=== PATIENT | male | born 1945 | race Caucasian/White ===

== ENCOUNTER 2018-03-29 10:02 | Emergency (ER) | payer OTHER, MEDICAID ==
--- NOTE | 2018-03-29 10:38 | EDPHY ---
H & P Time Seen by Provider: 03/29/18 10:34 HPI/ROS: CHIEF COMPLAINT: Hematuria HISTORY OF PRESENT ILLNESS: Patient is a 73-year-old male who denies any past medical history the presents emergency department hematuria. The patient states his symptoms started a few months ago. He has noticed intermittent blood. Nothing changed over the past week except for he decided to have it checked out. He has no dysuria or frequency. No flank pain. No abdominal pain. No nausea vomiting. No weight loss. Patient has no other significant bruising or bleeding symptoms. REVIEW OF SYSTEMS: 10 systems were reveiwed and are negative with the exception of the elements mentioned in the history of present illness. Past Medical/Surgical History: Denies Social history: Patient reports drinking alcohol Smoking Status: Former smoker Physical Exam: Vitals noted GENERAL: Well-appearing, in no acute distress, alert. HEENT: Eyes normal to inspection, normal pharynx, no signs of dehydration. Normal conjunctiva NECK: Normal, supple. RESPIRATORY: Clear to auscultation bilaterally, no rales, rhonchi or wheezing. CVS: Regular rate and rhythm, no rubs, murmurs, or gallops. ABDOMEN: Soft, nontender, nondistended, no organomegaly. Benign BACK: Normal to inspection, no CVA tenderness. SKIN: Normal color, no rash, warm, dry. No pallor. EXTREMITIES: No pedal edema, no bruising, no joint swelling. NEURO/PSYCH: Alert and oriented, normal mood and affect. Constitutional: Initial Vital Signs Temperature (C) 37.2 C 03/29/18 10:08 Heart Rate 110 H 03/29/18 10:08 Respiratory Rate 20 03/29/18 10:08 Blood Pressure 155/88 H 03/29/18 10:08 O2 Sat (%) 94 03/29/18 10:08 O2 Delivery Mode Room Air Allergies/Adverse Reactions: No Known Allergies Allergy (Verified 03/29/18 10:14) Home Medications: Medication Instructions Recorded Cephalexin [Keflex (*)] 500 mg PO QID 7 Days cap 03/29/18 Medical Decision Making ED Course/Re-evaluation: In the emergency department I discussed possible etiologies with the patient. I answered all his questions. A chemistry panel with hemoglobin in urine dip was ordered from point of care. I discussed plan with the patient. I answered all his questions. Hematocrit was 45. Creatinine was 1.0. Patient's urine shows positive blood and bilirubin. Patient also had positive leukocytes and nitrite. I discussed the results with the patient. Patient was given an antibiotic. I will take the entire course. He was given warnings prior to leaving. He will follow up with Urology. Differential Diagnosis: My differential includes but is not limited to hematuria, dysuria, urinary tract infection, pyelonephritis, mass, malignancy, cystitis, anemia - Data Points Laboratory Results: 03/29/18 10:50 POC Hgb 15.3 gm/dL gm/dL (13.7-17.5) POC Hct 45 % % (40-51) POC Sodium 137 mEq/L mEq/L (135-145) POC Potassium 4.1 mEq/L mEq/L (3.3-5.0) POC Chloride 101 mEq/L mEq/L (97-110) POC BUN 11 mg/dL mg/dL (7-23) POC Creatinine 1.0 mg/dL mg/dL (0.7-1.3) POC Glucose 114 mg/dL H mg/dL (70-100) Point of Care Test Results: Chemistry 03/29/18 10:50 POC Sodium 137 mEq/L mEq/L (135-145) POC Potassium 4.1 mEq/L mEq/L (3.3-5.0) POC Chloride 101 mEq/L mEq/L (97-110) POC BUN 11 mg/dL mg/dL (7-23) POC Creatinine 1.0 mg/dL mg/dL (0.7-1.3) POC Glucose 114 mg/dL H mg/dL (70-100) ISTAT H&H 03/29/18 10:50 POC Hgb 15.3 gm/dL gm/dL (13.7-17.5) POC Hct 45 % % (40-51) Urine Dip Collection Date 03/29/18 Collection Time 11:10 Specific [place] (1.002-1.030) 1.020 PH (5.0-7.5) 7.0 Leukocytes (Negative) 1+ Nitrites (Negative) Positive Protein (Negative) 3+ Glucose (Negative) Trace Ketones (Negative) Trace Urobilnogen (0.2-1.0 EU) 1.0 Bilirubin (Negative) Test Not Performed Blood (Negative) 3+ Departure - Departure Disposition: Home, Routine, Self-Care Clinical Impression: Hematuria Qualifiers: Hematuria type: unspecified type Qualified Code(s): R31.9 - Hematuria, unspecified Urinary tract infection Qualifiers: Urinary tract infection type: acute cystitis Hematuria presence: with hematuria Qualified Code(s): N30.01 - Acute cystitis with hematuria Condition: Good Instructions: Hematuria (ED), Urinary Tract Infection in Men (ED) Additional Instructions: You need close follow-up with Urology. Call today or tomorrow to make the next available appointment. Return to the emergency department sooner with increased blood in urine, pain, fever or any other concerns. Referrals: Marcos Rubio MD [Medical Doctor] - As per Instructions Prescriptions: Cephalexin [Keflex (*)] 500 mg PO QID 7 Days cap
[2018-03-29] MEDS ORDERED: CEPHALEXIN 500 MG CAP PO ONE (11:37)
[2018-03-29 11:58] VITALS: BP 151/91
== END 2018-03-29 11:57 | disposition home or self-care (01) ==
LOC: CED 10:02
DX: N39.0 Urinary tract infection, site not specified (principal)
CPT/HCPCS: 82435-PO; 82565-PO; 82947-PO; 84132-PO; 84295-PO; 84520-PO; 85014-PO

== ENCOUNTER 2018-06-16 15:14 | Inpatient (IN) | payer OTHER, MEDICAID ==
--- NOTE | 2018-06-16 15:44 | EDPHY ---
H & P Stated Complaint: Right sided Arm weakness for past 3 days, feeling "off" Time Seen by Provider: 06/16/18 15:24 HPI/ROS: CHIEF COMPLAINT: Right facial weakness, right arm weakness, history of bladder cancer HISTORY OF PRESENT ILLNESS: The patient has a history of bladder cancer presents to the ED with 2 days of right facial weakness and right arm weakness. The patient denies any history of fall or trauma. He denies headache. He denies any use of anticoagulant. The patient denies any acute neurologic complaints. REVIEW OF SYSTEMS: A comprehensive 10 point review of systems is otherwise negative aside from elements mentioned in the history of present illness. Source: Patient Exam Limitations: No limitations - Personal History Current Tetanus/Diphtheria Vaccine: Unsure Current Tetanus Diphtheria and Acellular Pertussis (TDAP): Unsure - Medical/Surgical History Hx Asthma: No Hx Chronic Respiratory Disease: No Hx Diabetes: No Hx Cardiac Disease: No Hx Renal Disease: No Hx Cirrhosis: No Hx Alcoholism: No Hx HIV/AIDS: No Hx Splenectomy or Spleen Trauma: No Other PMH: Denies - Social History Smoking Status: Former smoker - Physical Exam Exam: General Appearance: Elderly male, no acute distress Eyes: Pupils equal and round no pallor or injection ENT, Mouth: Mucous membranes moist Respiratory: There are no retractions, lungs are clear to auscultation Cardiovascular: Regular rate and rhythm Gastrointestinal: Abdomen is soft and nontender, no masses, bowel sounds normal Neurological: Markedly weakness noted in the right arm with drift and minimal movement against gravity, right facial droop, 5/5 strength noted in the left side of the body and 5/5 strength noted in the right leg Skin: Warm and dry, no rashes Musculoskeletal: Neck is supple nontender Extremities: symmetrical, full range of motion Psychiatric: Patient is oriented X 3, there is no agitation Constitutional: Initial Vital Signs Temperature (C) 36.8 C 06/16/18 15:24 Heart Rate 79 06/16/18 15:24 Respiratory Rate 16 06/16/18 15:24 Blood Pressure 154/99 H 06/16/18 15:24 O2 Sat (%) 94 06/16/18 15:24 O2 Delivery Mode Room Air Allergies/Adverse Reactions: No Known Allergies Allergy (Verified 03/29/18 10:14) Home Medications: Medication Instructions Recorded NK [No Known Home Meds] 06/16/18 Medical Decision Making - Diagnostics EKG Interpretation: EKG: Complete interpretation has been separately recorded in the [facility] archive. Summary impression: Sinus rhythm, rate 75 Imaging Results: Imaging Impressions Head CT 06/16/18 15:30 Impression: Underlying atrophy and white matter microvascular ischemic gliosis ; subacute ischemic infarction posterior left parietal lobe, moderate size, without hemorrhage. Results called to Dr. Manpreet Medrano at 4:00 PM at the time of the interpretation. Head CTA 06/16/18 16:16 Impression: 1. Diminished cortical perfusion to the posterior left parietal lobe at the site of subacute ischemic infarction. 2. Calcified plaque within the distal internal carotid arteries bilaterally, without flow-limiting disease or central thrombus. Results called to Dr. Manpreet Medrano at 5:30 PM. Neck CTA 06/16/18 16:16 Impression: 1. 2-cm soft plaque within the anterior aspect of the mid ascending thoracic aorta. 2. High-grade stenosis of the left common carotid artery at the origin, associated with a 2.0 x 0.7 cm free floating thrombus or noncalcified plaque downstream from the stenosis. 3. Localized dissection with calcification within the proximal left subclavian artery just past the origin, with secondary moderate stenosis. 4. High-grade stenosis of the proximal right vertebral artery at the origin from the subclavian artery. 5. Extensive calcified plaque within the carotid bifurcations and proximal ICAs bilaterally, without flow-limiting disease. Results called to Dr. Jose Medrano at 5:30 p.m. Note: All stenoses are calculated using NASCET Criteria. ED Course/Re-evaluation: The patient presents to the ED with right facial weakness and right arm weakness which has been present for the past 3 days. He has mild weakness noted in his right leg. The patient was taken for CT scan of the brain which demonstrates a subacute stroke. The patient return from the CT scanner. CT angiography has been ordered. The patient was given an aspirin. The patient is not a candidate for thrombolytics therapy as he has had symptoms for 2-3 days. I reviewed the results of the CTA with Dr. Flor from [facility] who states that there is no indication for an intervention. He recommends admission to our hospital for further work-up. Differential Diagnosis: Differential diagnosis considered includes stroke, intracranial hemorrhage, LINE DRIVER metastasis - Data Points Laboratory Results: Laboratory Results 06/16/18 15:35 06/16/18 15:35 06/16/18 06/16/18 06/16/18 15:35 15:35 15:35 WBC 5.98 10^3/uL 10^3/uL (3.80-9.50) RBC 4.21 10^6/uL L 10^6/uL (4.40-6.38) Hgb 12.7 g/dL L g/dL (13.7-17.5) Hct 37.8 % L % (40.0-51.0) MCV 89.8 fL fL (81.5-99.8) MCH 30.2 pg pg (27.9-34.1) MCHC 33.6 g/dL g/dL (32.4-36.7) RDW 14.1 % % (11.5-15.2) Plt Count 498 10^3/uL H 10^3/uL (150-400) MPV 9.2 fL fL (8.7-11.7) Neut % (Auto) 62.0 % % (39.3-74.2) Lymph % (Auto) 33.4 % % (15.0-45.0) Irwin % (Auto) 3.7 % L % (4.5-13.0) Eos % (Auto) 0.2 % L % (0.6-7.6) Baso % (Auto) 0.2 % L % (0.3-1.7) Nucleat RBC Rel Count 0.0 % % (0.0-0.2) Absolute Neuts (auto) 3.71 10^3/uL 10^3/uL (1.70-6.50) Absolute Lymphs (auto) 2.00 10^3/uL 10^3/uL (1.00-3.00) Absolute Monos (auto) 0.22 10^3/uL L 10^3/uL (0.30-0.80) Absolute Eos (auto) 0.01 10^3/uL L 10^3/uL (0.03-0.40) Absolute Basos (auto) 0.01 10^3/uL L 10^3/uL (0.02-0.10) Absolute Nucleated RBC 0.00 10^3/uL 10^3/uL (0-0.01) Immature Gran % 0.5 % % (0.0-1.1) Immature Gran # 0.03 10^3/uL 10^3/uL (0.00-0.10) PT 13.5 SEC SEC (12.0-15.0) INR 1.01 (0.83-1.16) Sodium 137 mEq/L mEq/L (135-145) Potassium 4.0 mEq/L mEq/L (3.5-5.2) Chloride 103 mEq/L mEq/L (97-110) Carbon Dioxide 23 mEq/l mEq/l (22-31) Anion Gap 11 mEq/L mEq/L (6-14) BUN 32 mg/dL H mg/dL (7-23) Creatinine 1.0 mg/dL mg/dL (0.7-1.3) Estimated GFR > 60 Glucose 111 mg/dL H mg/dL (70-100) Calcium 9.3 mg/dL mg/dL (8.5-10.4) Medications Given: Discontinued Medications Aspirin (Aspirin) 324 mg PO EDNOW ONE Stop: 06/16/18 16:21 Last Admin: 06/16/18 16:41 Dose: 324 mg Departure - Departure Disposition: [facility] Inpatient Acute Clinical Impression: Ischemic stroke, Bladder cancer Condition: Fair NIH Stroke Scale Date of Exam: 06/16/18 Time of Exam: 16:28 Level of Consciousness: Alert LOC Questions: Answers Both LOC Commands: Performs Both Correctly Best Gaze: Normal Visual: No Visual Loss Facial Palsy: Complete Paralysis Motor Arm-Left: No Drift Motor Arm-Right: Some Effort to [place] Motor Leg-Left: No Drift Motor Leg-Right: Some Effort to [place] Limb Ataxis: Absent Sensory: Normal Best Language: No Aphasia Dysarthria: Mild/Mod Dysarthria Extinction and Inattention (Neglect): No Abnormality NIH Scale Score: 8
[2018-06-16 15:51] LABS: PLATELET COUNT 498 10^3/uL (150-400)
[2018-06-16 16:01] LABS: INR 1.01 (0.83-1.16); PROTIME(PATIENT) 13.5 SEC (12.0-15.0)
[2018-06-16] MEDS ORDERED: ASPIRIN 81 MG CHEWABLE TAB PO ONE (16:20)
[2018-06-16] MEDS ORDERED: IOPAMIDOL (ISOVUE 370) 100 ML BTL IV ONE (16:24)
--- NOTE | 2018-06-16 16:41 | CPEKG ---
Test Reason : OPEN Blood Pressure : / mmHG Vent. Rate : 075 BPM Atrial Rate : 074 BPM P-R Int : 135 ms QRS Dur : 095 ms QT Int : 379 ms P-R-T Axes : 067 043 044 degrees QTc Int : 424 ms Sinus rhythm Confirmed by Jose Brandt ([id number]) on 06/16/2018 4:40:40 PM Referred By: Confirmed By:Jose Brandt
[2018-06-16] MEDS ORDERED: ONDANSETRON DISINTEGRATING 4 MG TAB PO PRN (17:12)
[2018-06-16] MEDS ORDERED: ONDANSETRON 4 MG/2 ML VIAL IVP PRN (17:12)
--- NOTE | 2018-06-16 19:08 | PDGENHP ---
Addendum entered and electronically signed by Sherry Lal NP 06/16/18 19:35 : He is a heavy drinker with at least 6 beers a day. Does not appear to be withdrawing but continue to monitor. He reports last drink was a week ago. Addendum entered and electronically signed by Sherry Lal NP 06/16/18 19:32 : Ordered ECHO to evaluate heart function Original Note: <Sherry Lal - Last Filed: 06/16/18 19:28> History and Physical - Chief Complaint Right arm weakness - History of Present Illness 73 y/o male presents to the emergency room after experiencing right arm weakness for the last 2-3 days. This is my first encounter with the pt who was evaluated in the emergency room. He reports he wasn't doing anything in particular during the time that he noticed his right arm was weak. He noticed he wasn't able to lift it. He didn't notice anything with the right side of his face that was bothersome or cause for concern. Head CT reveals subacute ischemic infarction posterior left parietal lobe moderate size without hemorrhage. Head CTA confirms diminished cortical perfusion to the posterior left parietal lobe at the site of infarction and calcified plaque within distal internal carotid arteries bilaterally without flow-limiting disease or central thrombus. Neck CTA reveals soft plaque anterior aspect of mid ascending thoracic aorta and high grade stenosis of left common carotid artery associating with free floating thrombus or noncalcified down from the stenosis. Other findings can be found in the report. EKG SR. He is not a tPA candidate since onset was approximately 2-3 days prior. He is being admitted for further diagnostic work-up and management of subacute ischemic stroke. Past Medical/Surgical History 1. Bladder Cancer 2. TURB (April 2018) Social 1. Lives alone, independently 2. Denies tobacco or illicit drug use. Drinks at least 6 beers/day Vital Signs 161/97 86 HR 12 Respirations 95% RA 36.9c History Information - Allergies/Home Medication List Allergies/Adverse Reactions: No Known Allergies Allergy (Verified 03/29/18 10:14) Home Medications: NK [No Known Home Meds] 06/16/18 [Last Taken Unknown] I have personally reviewed and updated: family history, medical history, social history, surgical history Past Medical History: See HPI List - Surgical History Additional surgical history: See HPI list - Family History Positive for: non-pertinent - Social History Smoking Status: Former smoker Alcohol Use: Heavy Drug Use: None Review of Systems Review of Systems: ROS: 10pt was reviewed & negative except for what was stated in HPI & below Constitutional: Reports: weakness EENMT: Reports: no symptoms Cardiac: Reports: no symptoms Respiratory: Reports: no symptoms Gastrointestinal: Reports: no symptoms Genitourinary: Reports: no symptoms Muscolosketal: Reports: no symptoms Skin: Reports: no symptoms Neurological: Reports: numbness, weakness Hematologic/Lymphatic: Reports: no symptoms Immunologic/Allergy: Reports: no symptoms Physical Exam Physical Exam: Lab data and imaging reviewed Imaging: see HPI list RBC: 4.21 Hgb/Hct: 12.7/37.8 Plt: 498 Creatinine/BUN: 1.0/32 INR: 1.01 Temp Pulse Resp BP Pulse Ox 36.9 C 86 12 161/97 H 95 06/16/18 16:00 06/16/18 16:00 06/16/18 16:00 06/16/18 16:00 06/16/18 16:00 Constitutional: no apparent distress, appears nourished, not in pain Eyes: PERRL, anicteric sclera, EOMI Ears, Nose, Mouth, Throat: moist mucous membranes, hearing normal, ears appear normal, no oral mucosal ulcers Cardiovascular: regular rate and rhythym, no murmur, rub, or gallop, No edema Peripheral Pulses: 2+: dorsalis-pedis (R) (Radial 2+), dorsalis-pedis (L) ( Radial 2+) Respiratory: no respiratory distress, no rales or rhonchi, clear to auscultation Gastrointestinal: normoactive bowel sounds, soft, non-tender abdomen, no palpable masses Genitourinary: no bladder fullness, no bladder tenderness Skin: warm, normal color, no rashes or abrasions, no fluctuance, no induration, No mottled Musculoskeletal: other (See neurologic) Neurologic: weakness (Right arm can go against gravity but with difficulty; right leg can go against gravity but noted weakness), numbness (Unable to feel sensation to RUE, sensation intact RLE), pronator drift, facial droop (Right side), other (He was able to answer majority of questions correctly. Unable to tell me the month or who the president was. Unable to: shrug his right shoulder , bring his right ear to his right shoulder, asymmetrical smile.) Psychiatric: not anxious, flat affect, other (At times seemed frustrated with certain questions and his inability to answer them; had difficulty recalling information; no slurring of words) Lymph, Heme, Immunologic: no cervical LAD, no supraclavicular LAD Lab Data & Imaging Review 06/16/18 15:35 06/16/18 15:35 WBC 5.98 10^3/uL (3.80-9.50) 06/16/18 15:35 RBC 4.21 10^6/uL (4.40-6.38) L 06/16/18 15:35 Hgb 12.7 g/dL (13.7-17.5) L 06/16/18 15:35 Hct 37.8 % (40.0-51.0) L 06/16/18 15:35 MCV 89.8 fL (81.5-99.8) 06/16/18 15:35 MCH 30.2 pg (27.9-34.1) 06/16/18 15:35 MCHC 33.6 g/dL (32.4-36.7) 06/16/18 15:35 RDW 14.1 % (11.5-15.2) 06/16/18 15:35 Plt Count 498 10^3/uL (150-400) H 06/16/18 15:35 MPV 9.2 fL (8.7-11.7) 06/16/18 15:35 Neut % (Auto) 62.0 % (39.3-74.2) 06/16/18 15:35 Lymph % (Auto) 33.4 % (15.0-45.0) 06/16/18 15:35 Hood % (Auto) 3.7 % (4.5-13.0) L 06/16/18 15:35 Eos % (Auto) 0.2 % (0.6-7.6) L 06/16/18 15:35 Baso % (Auto) 0.2 % (0.3-1.7) L 06/16/18 15:35 Nucleat RBC Rel Count 0.0 % (0.0-0.2) 06/16/18 15:35 Absolute Neuts (auto) 3.71 10^3/uL (1.70-6.50) 06/16/18 15:35 Absolute Lymphs (auto) 2.00 10^3/uL (1.00-3.00) 06/16/18 15:35 Absolute Monos (auto) 0.22 10^3/uL (0.30-0.80) L 06/16/18 15:35 Absolute Eos (auto) 0.01 10^3/uL (0.03-0.40) L 06/16/18 15:35 Absolute Basos (auto) 0.01 10^3/uL (0.02-0.10) L 06/16/18 15:35 Absolute Nucleated RBC 0.00 10^3/uL (0-0.01) 06/16/18 15:35 Immature Gran % 0.5 % (0.0-1.1) 06/16/18 15:35 Immature Gran # 0.03 10^3/uL (0.00-0.10) 06/16/18 15:35 PT 13.5 SEC (12.0-15.0) 06/16/18 15:35 INR 1.01 (0.83-1.16) 06/16/18 15:35 Sodium 137 mEq/L (135-145) 06/16/18 15:35 Potassium 4.0 mEq/L (3.5-5.2) 06/16/18 15:35 Chloride 103 mEq/L (97-110) 06/16/18 15:35 Carbon Dioxide 23 mEq/l (22-31) 06/16/18 15:35 Anion Gap 11 mEq/L (6-14) 06/16/18 15:35 BUN 32 mg/dL (7-23) H 06/16/18 15:35 Creatinine 1.0 mg/dL (0.7-1.3) 06/16/18 15:35 Estimated GFR > 60 06/16/18 15:35 Glucose 111 mg/dL (70-100) H 06/16/18 15:35 Calcium 9.3 mg/dL (8.5-10.4) 06/16/18 15:35 Assessment & Plan Plan: 73 y/o male with subacute ischemic stroke and soft plaque in his carotid arteries. 1. Subacute ischemic stroke -Initiated stroke protocol including but not limited to tele monitoring, NIH Scale Qshift, and Neuro checks -Neurology to consult -PT/OT/LAB MANAGER to evaluate pt -ASA 325 mg QD -Plavix 75 mg QD -CBC/CMP tomorrow 2. Plaque -Initiated Atorvastatin 40 mg QD -Lipid panel tomorrow 3. Mild anemia: continue to monitor for now Diet: Regular if passed swallow test VTE ppx: SCD, ASA Code: DNR Dispo: Admit to inpatient <[email or web address] d - Last Filed: 06/16/18 20:47> History and Physical - History of Present Illness Review of Systems Review of Systems: Physical Exam Physical Exam: Temp Pulse Resp BP Pulse Ox 37 C 78 18 131/69 H 96 06/16/18 20:28 06/16/18 20:28 06/16/18 20:28 06/16/18 20:28 06/16/18 20:28 Lab Data & Imaging Review 06/16/18 15:35 06/16/18 15:35 WBC 5.98 10^3/uL (3.80-9.50) 06/16/18 15:35 RBC 4.21 10^6/uL (4.40-6.38) L 06/16/18 15:35 Hgb 12.7 g/dL (13.7-17.5) L 06/16/18 15:35 Hct 37.8 % (40.0-51.0) L 06/16/18 15:35 MCV 89.8 fL (81.5-99.8) 06/16/18 15:35 MCH 30.2 pg (27.9-34.1) 06/16/18 15:35 MCHC 33.6 g/dL (32.4-36.7) 06/16/18 15:35 RDW 14.1 % (11.5-15.2) 06/16/18 15:35 Plt Count 498 10^3/uL (150-400) H 06/16/18 15:35 MPV 9.2 fL (8.7-11.7) 06/16/18 15:35 Neut % (Auto) 62.0 % (39.3-74.2) 06/16/18 15:35 Lymph % (Auto) 33.4 % (15.0-45.0) 06/16/18 15:35 Hood % (Auto) 3.7 % (4.5-13.0) L 06/16/18 15:35 Eos % (Auto) 0.2 % (0.6-7.6) L 06/16/18 15:35 Baso % (Auto) 0.2 % (0.3-1.7) L 06/16/18 15:35 Nucleat RBC Rel Count 0.0 % (0.0-0.2) 06/16/18 15:35 Absolute Neuts (auto) 3.71 10^3/uL (1.70-6.50) 06/16/18 15:35 Absolute Lymphs (auto) 2.00 10^3/uL (1.00-3.00) 06/16/18 15:35 Absolute Monos (auto) 0.22 10^3/uL (0.30-0.80) L 06/16/18 15:35 Absolute Eos (auto) 0.01 10^3/uL (0.03-0.40) L 06/16/18 15:35 Absolute Basos (auto) 0.01 10^3/uL (0.02-0.10) L 06/16/18 15:35 Absolute Nucleated RBC 0.00 10^3/uL (0-0.01) 06/16/18 15:35 Immature Gran % 0.5 % (0.0-1.1) 06/16/18 15:35 Immature Gran # 0.03 10^3/uL (0.00-0.10) 06/16/18 15:35 PT 13.5 SEC (12.0-15.0) 06/16/18 15:35 INR 1.01 (0.83-1.16) 06/16/18 15:35 Sodium 137 mEq/L (135-145) 06/16/18 15:35 Potassium 4.0 mEq/L (3.5-5.2) 06/16/18 15:35 Chloride 103 mEq/L (97-110) 06/16/18 15:35 Carbon Dioxide 23 mEq/l (22-31) 06/16/18 15:35 Anion Gap 11 mEq/L (6-14) 06/16/18 15:35 BUN 32 mg/dL (7-23) H 06/16/18 15:35 Creatinine 1.0 mg/dL (0.7-1.3) 06/16/18 15:35 Estimated GFR > 60 06/16/18 15:35 Glucose 111 mg/dL (70-100) H 06/16/18 15:35 Calcium 9.3 mg/dL (8.5-10.4) 06/16/18 15:35 Assessment & Plan Assessment: Ischemic stroke (Acute) Bladder cancer (Acute) Plan: Patient seen and evaluated independently and care plan reviewed with ALEJANDRA Lal. Agree with her assessment and plan as outlined above. Please see separate documentation for further details.
--- NOTE | 2018-06-16 20:48 | HOSPPROG ---
Hospitalist Progress Note Assessment/Plan: 73 yo M with PMH of bladder cancer and oral leukoplakia presenting with several days of right arm and hand weakness/right facial droop found to be 2/2 subacute CVA # subacute CVA: with sxs beginning several days ago and out of window for TPA, posterior left parietal ischemic infarct noted on personal review of head CT. CTA of head/neck showing multiple abnormalities including high grade stenosis of the left common carotid with associated possible free floating thrombus, high grade stenosis of right proximal vertebral and left SCV artery dissection with associated moderate stenosis. Imaging findings were discussed with [facility] neurology who do not recommend urgent intervention or AC for these findings , but do recommend initiation of asa/plavix. Neurology to formally consult in the morning. # carotid disease: as above with question of possible free floating thrombus, will await neuro recommendations but patient may need surgical referral # bladder cancer: followed by [facility], not active issue # etoh use disorder: sounds as though patient is a fairly heavy drinker, does not have any s/s of withdrawal at this time, will start CIWA if this changes # IP status given new diagnosis of stroke and associated significant vascular findings # Patient new to my care. Old records reviewed and summarized as above. Care plan reviewed with ER doctor as above. Care plan reviewed with ALEJANDRA Lal, please see separate H&P for further details. Objective: Vital Signs Temp Pulse Resp BP Pulse Ox 37 C 78 18 131/69 H 96 06/16/18 20:28 06/16/18 20:28 06/16/18 20:28 06/16/18 20:28 06/16/18 20:28 PT 13.5 SEC (12.0-15.0) 06/16/18 15:35 INR 1.01 (0.83-1.16) 06/16/18 15:35 ICD10 Worksheet Patient Problems: Problems Problem Status Onset Bladder cancer Acute Ischemic stroke Acute
[2018-06-16] MEDS ORDERED: LISINOPRIL 10 MG TAB PO SCH (21:00)
[2018-06-16] MEDS: ATORVASTATIN CALCIUM 40 MG TAB PO SCH (21:25)
[2018-06-16] MEDS: CLOPIDOGREL BISULFATE 75 MG TAB PO SCH (21:25)
[2018-06-17] MEDS ORDERED: ASPIRIN EC 325 MG TAB PO SCH (09:00)
[2018-06-17] MEDS: ATORVASTATIN CALCIUM 40 MG TAB PO SCH (09:20)
[2018-06-17] MEDS: CLOPIDOGREL BISULFATE 75 MG TAB PO SCH (09:20)
--- NOTE | 2018-06-17 12:35 | ECHO ---
[email or web address] [address] [address] Main: [phone] Fax: Transthoracic Echocardiogram Name: KATHARINE CARRANZA MR#: [id number] Study Date: 06/17/2018 Study Time: 11:43 AM Date of : 1945 Age: 73 year(s) Height: 175.3 cm (69 in.) Weight: 68.04 kg (150 lb.) BSA: 1.83 m2 Gender: Male Examination: Echo Indication: ischemic stroke Image Quality: Adequate Contrast: Requested by: Sherry Lal BP: 151 mmHg/78 mmHg Heart Rate: Rhythm: Indication: ischemic stroke Procedure Staff Health And Safety Technician: Miroslava Villavicencio [facility] Reading Physician: Lore Mckeon MD Requesting Provider: Conclusions: Normal size left ventricle. Normal global systolic LV function. The ejection fraction is visually estimated to be 55 %. No regional wall motion abnormality. Normal size right ventricle. Normal RV function. No aortic valve stenosis is present. There appears to be a moderate amount of aortic valve calcification. The aortic valve mean gradient obtained was 13 mmhg. Technically limited study. No prior echocardiogram No obvious cardiac source of embolism; KM is more sensitive to detect cardiac source Measurements: Chambers Valvular Assessment AV/MV Valvular Assessment TV/PV Normal Normal Normal Name Value Range Name Value Range Name Value Range Visual EF: 55 % AV Vmax: 2.16 m/s (1 m/s-1.7 PV Vmax: 0.99 m/s (0.6 m/s-0.9 m/s) m/s) AV maxP mmHg ( - ) PV PGmax: 4 mmHg ( - ) AV meanP mmHg ( - ) MV E Vmax: 0.65 m/s ( - ) MV A Vmax: 1.04 m/s ( - ) MV E/A: 0.62 ( - ) MV PHT: 0.043 s ( - ) MVA (PHT): 5.1 s ( - ) Continued Measurements: Valvular Assessment AV/MV Patient: KATHARINE CARRANZA Study Date: 06/17/2018 Page 1 of 2 11:43 AM Name Value MV DecTime: 151 m/s MV E/E' Lateral: 9.50 Findings: Left Ventricle: Normal size left ventricle. Normal global systolic LV function. The ejection fraction is visually estimated to be 55 %. No regional wall motion abnormality. Right Ventricle: Normal size right ventricle. Normal RV function. Left Atrium: The left atrium is normal in size. Right Atrium: The right atrium is normal in size. Mitral Valve: The mitral valve is normal in appearance and function. Trivial to mild mitral regurgitation. Aortic Valve: The aortic valve is tri-leaflet. There is no significant aortic valve regurgitation. No aortic valve stenosis is present. There appears to be a moderate amount of aortic valve calcification. The aortic valve mean gradient obtained was 13 mmhg. Tricuspid Valve: The tricuspid valve is normal in appearance and function. Trivial tricuspid valve regurgitation. Pulmonic Valve: The pulmonic valve is normal in appearance and function. Pericardium: No pericardial effusion. Exam Comments: (No Signature Object) Patient: KATHARINE CARRANZA Study Date: 06/17/2018 Page 2 of 2 11:43 AM [id number]
[2018-06-17 12:41] VITALS: BP 143/82
--- NOTE | 2018-06-17 12:58 | GCON ---
REFERRING PHYSICIAN: Kaylee Lal CHIEF COMPLAINT: Stroke. HISTORY OF PRESENT ILLNESS: Mr. Cabrera is a very pleasant 73-year-old gentleman who has a history of bladder cancer. He began having right arm weakness 3 days ago, but did not seek care till yesterday evening. He came to the ED and head CT without contrast showed a subacute moderate-sized left parietal infarct. CTA of the head showed 2 cm soft plaque within the anterior aspect of the mid ascending thoracic aorta, high-grade stenosis of the left common carotid artery at the origin associated with a 2 x 0.7 cm thrombus. There was some localized dissection with calcification within the proximal left subclavian artery just past the origin with moderate stenosis. There was high-grade stenosis noted in the right proximal vertebral artery. CT of the head showed expected diminished cortical perfusion in the left posterior parietal region without a large vessel occlusion noted intracranially. The patient was admitted for further evaluation. He was evaluated by [facility] in the ED. The [facility] physician, Dr. Flor from [facility] did not recommend any further intervention. They apparently recommended dual anti-platelet therapy. He is on Plavix and aspirin now. I contacted our surgery service for carotid intervention. However, the general surgery staff who are credentialed for carotid surgery are not in town currently. Therefore, I contacted [facility] again to review the angiography imaging and they recommended transfer to the intensive care unit in [facility] for vascular intervention. They agreed with dual anti-platelet therapy. We will get together all of his imaging on a disk and I filled out the transfer form along with coordinating care with Dr. Bill and the nursing team. For past medical history, social history, family history, home medications, allergies see Sherry Lal's H and P. PHYSICAL EXAM: Blood pressure is 127/69. He is afebrile at 36.2, heart rate in the 80s. The patient is awake and alert. He has a flat affect. He has upper motor neuron right facial weakness on the right on cranial nerve exam. He has significant weakness in his right arm and minimal weakness in his right leg. On language exam, he can name 4/5, repeat 3/5, and follow commands 3/5. There appears to be some aphasia, receptive greater than expressive. However, he has some paucity in spontaneous verbal output. IMPRESSION AND PLAN: 1. Subacute left parietal stroke, moderate in size. 2. High-grade left carotid artery stenosis. 3. Multivessel vascular disease. As noted above, I have coordinated care with the neurovascular service at [facility] and we will transfer to their ICU for consideration of carotid intervention based on the imaging and history as noted above. They agree with dual antiplatelet therapy, which he is on. We will aggregate all of his records prior to transfer. The transfer form has been filled out. I have coordinated care with [facility]. Seventy total minutes floor time today; over 50% in direct counseling and coordination of care. As the patient will transfer later today, we will sign off and follow up as needed. Please do not hesitate to call if there are any questions or change in neurologic status with this patient. We appreciate the consultation. /[id number]/MODL MTDDes
--- NOTE | 2018-06-17 13:11 | ASMTLACE ---
ALEJANDRA Length of stay for Answers: Less than 1 day current admission Acuity / Level of Answers: Yes Care: Did the patient have an inpatient admission? Comorbidities - select Answers: Cerebrovascular disease all that apply (CVA, TIA, aneurysms, vasc ular dementia) Other Notes: BPH, Bladder cancer, ET OH use # of Emergency department Answers: 1-2 visits in the last 6 months Social determinants Answers: History of substance abuse (ETOH, street drugs, prescription drugs, etc.) Score: 9 Date Signed: 06/17/2018 01:10 PM Electronically Signed By:Aria Plaza
--- NOTE | 2018-06-17 13:15 | ASMTDCNOTE ---
Case Management Discharge Discharge Order Complete? Answers: No Patient to Obtain Answers: Other Notes: [place] [facility] Transportation Arranged Answers: [facility] Stretcher Transport will Pick (Date 06/17/2018 01:20 PM & Time) EMTALA Complete Answers: Yes Case Management Transport Answers: Yes Form Complete Faxed Final Orders Answers: No Notes: hard copy sent with pt. Agency/Facility Transfer Answers: No Notes: hard copy sent with pt. Report Printed & Faxed to Receiving Agency Family Notified Answers: Yes Notes: Ed Cordero in room, to [place] pt's sister Discharge Comments Notes: Pt admitted for severe stroke, lives independently and verbally identified Ed Consuelo (friend in room) as next of kin and medical proxy if needed. Pt to transfer to [facility] as he needs carotid artery procedure not offered at [facility] at this time as qualified surgeons are unavailable. RN given number for RN report. Necessary imaging and notes printed and sent with [facility]. No further CM needs noted at this time. DC Plan: Transfer to [facility] in [place] via [facility] Date Signed: 06/17/2018 01:15 PM Electronically Signed By:Aria Plaza
--- NOTE | 2018-06-17 13:16 | ASDISCHSUM ---
Discharge Information Plan Status:Acute Transfer Medically Cleared to Leave:06/16/2018 Discharge Date:06/16/2018 CM D/C Disposition:[facility] Not [facility] ADT D/C Disposition:[facility] Projected Discharge Date:06/17/2018 12:00 AM Transportation at D/C:ALS/BLS Discharge Delay Reason: Follow-Up Date:06/17/2018 12:00 AM Discharge Slot: Final Diagnosis:Stroke Placement Information Patient Contact Information Contact Name:LUKAS Relationship:Friend Address:[address] Work Phone: City:[place] Phone: State/Zip Code:[place] [address] Email: Financial Information Financial Class:Medicare Primary Plan Desc:MEDICARE INPATIENT Primary Plan Number:[id number] Secondary Plan Desc:MED[place] Secondary Plan Number:[id number] Assessment Information LACE LACE Length of stay for Answers: Less than 1 day current admission Acuity / Level of Answers: Yes Care: Did the patient have an inpatient admission? Comorbidities - select Answers: Cerebrovascular disease all that apply (CVA, TIA, aneurysms, vasc ular dementia) Other Notes: BPH, Bladder cancer, ET OH use # of Emergency department Answers: 1-2 visits in the last 6 months Social determinants Answers: History of substance abuse (ETOH, street drugs, prescription drugs, etc.) Score: 9 Date Signed: 06/17/2018 01:10 PM Electronically Signed By:Aria Plaza Case Management Discharge Plan Note Case Management Discharge Discharge Order Complete? Answers: No Patient to Obtain Answers: Other Notes: [place] [employer] Transportation Arranged Answers: MARISA Calderon Transport will [place] (Date 06/17/2018 01:20 PM & Time) JANNET Complete Answers: Yes Case Management Transport Answers: Yes Form Complete Faxed Final Orders Answers: No Notes: hard copy sent with pt. Agency/Facility Transfer Answers: No Notes: hard copy sent with pt. Report Printed & Faxed to Receiving Agency Family Notified Answers: Yes Notes: Ed Consuelo in room, to [place] pt's sister Discharge Comments Notes: Pt admitted for severe stroke, lives independently and verbally identified Ed Consuelo (friend in room) as next of kin and medical proxy if needed. Pt to transfer to [facility] as he needs carotid artery procedure not offered at [facility] at this time as qualified surgeons are unavailable. RN given number for RN report. Necessary imaging and notes printed and sent with [facility]. No further CM needs noted at this time. DC Plan: Transfer to [facility] in [place] via [facility] Date Signed: 06/17/2018 01:15 PM Electronically Signed By:Aria Plaza Intervention Information
--- NOTE | 2018-06-17 14:36 | PDMN ---
Medical Necessity Medical necessity: Pt meets INPT criteria per MD as of 06/16/18 and [facility] M-83 Stroke: Ischemic.
--- NOTE | 2018-06-17 14:40 | PDDCSUM ---
Discharge Summary Discharge Summary: Dates of service 06/16-06/17/18 Consultations: neurology Procedures performed: head CT, head/neck CTA Hospital course by problem: 73 yo M with PMH of bladder cancer and oral leukoplakia presenting with several days of right arm and hand weakness/right facial droop found to be 2/2 subacute CVA # subacute CVA: with sxs beginning several days ago and out of window for TPA, posterior left parietal ischemic infarct noted on personal review of head CT. Appreciate neurology consult, started pt/ot. Etiology presumed 2/2 next # left carotid stenosis: with other associated vasculopathy including right vertebral artery stenosis, left sCV artery dissection and stenosis, ascending aortic plaque and concerns of possible free floating thrombus associated with the left common carotid. Started on asa/plavix and ultimately with plans to transfer to [facility] for further management and possible surgical intervention # bladder cancer: followed by [facility], not active issue # etoh use disorder: sounds as though patient is a fairly heavy drinker, does not have any s/s of withdrawal at this time, will start CIWA if this changes DC to [facility] will be evaluated by neurology/vascular surgery there > 35 min spent in dc more than half in coordination of care with Neurology service in facilitating transfer
== END 2018-06-17 13:33 | disposition short-term general hospital (02) | DRG 66 ==
LOC: EDUNIT# → F3N 21:15
PROVIDERS: ADMIT Internal Medicine; ATTEND Internal Medicine
DX: I63.032 Cerebral infarction due to thrombosis of left carotid artery (principal); I67.2 Cerebral atherosclerosis; C67.9 Malignant neoplasm of bladder, unspecified; D64.9 Anemia, unspecified; I10 Essential (primary) hypertension; Z72.89 Other problems related to lifestyle
CPT/HCPCS: 97110-GO; 97162-GP; 97166-GO; G8978-GP-CL; G8979-GP-CJ; G8987-GO-CL; G8988-GO-CI; Q9967